=== PATIENT | female | born 1995 | race American Indian/Alaskan Native ===

== ENCOUNTER 2018-11-15 00:22 | Emergency (ER) | payer OTHER ==
[2018-11-15 00:37] VITALS: BP 122/84
--- NOTE | 2018-11-15 02:49 | Emergency Department Report ---
ED ENT HPI - General Chief complaint: Dental/Oral Stated complaint: TOOTHACHE/MOUTH PAIN Time Seen by Provider: 11/15/18 02:45 Source: patient Mode of arrival: Ambulatory Limitations: No Limitations - History of Present Illness Initial comments: 22-year-old female comes to the emergency room complaining of toothache 5 days. Patient reports that she is seen by Dr. Matthias Ramos dent[facility] on [facility]. Patient reports that her dentis increased her antibiotics that started today. Patient reports that she is currently taking oxycodone ibuprofen and amoxicillin 875. Patient states that the pain has not . MD complaint: tooth pain Location: tooth # (14) Severity: severe Quality: stabbing, aching Improves with: none Worsens with: none Associated Symptoms: toothache - Related Data Allergies Allergy/AdvReac Type Severity Reaction Status Date / Time No Known Allergies Allergy Unverified 11/15/18 00:37 ED Dental HPI - General Chief complaint: Dental/Oral Stated complaint: TOOTHACHE/MOUTH PAIN Time Seen by Provider: 11/15/18 02:45 Source: patient Mode of arrival: Ambulatory Limitations: No Limitations - Related Data Allergies Allergy/AdvReac Type Severity Reaction Status Date / Time No Known Allergies Allergy Unverified 11/15/18 00:37 ED Review of Systems ROS: Stated complaint: TOOTHACHE/MOUTH PAIN Other details as noted in HPI Constitutional: denies: chills, fever Eyes: denies: eye pain, eye discharge, vision change ENT: dental pain. denies: ear pain, throat pain Respiratory: denies: cough, shortness of breath, wheezing Cardiovascular: denies: chest pain, palpitations Endocrine: no symptoms reported Gastrointestinal: denies: abdominal pain, nausea, diarrhea Genitourinary: denies: urgency, dysuria, discharge Musculoskeletal: denies: back pain, joint swelling, arthralgia Skin: denies: rash, lesions Neurological: denies: headache, weakness, paresthesias Psychiatric: denies: anxiety, depression Hematological/Lymphatic: denies: easy bleeding, easy bruising ED Past Medical Hx - Past Medical History Previous Medical History?: Yes Hx GERD: Yes Additional medical history: hyperlipidemia - Surgical History Past Surgical History?: No - Social History Smoking Status: Never Smoker Substance Use Type: None ED Physical Exam - General Limitations: No Limitations General appearance: alert, in no apparent distress - Head Head exam: Present: atraumatic, normocephalic - Eye Eye exam: Present: normal appearance, EOMI - ENT ENT exam: Present: mucous membranes moist - Expanded ENT Exam Expanded Teeth exam: Present: dental tenderness # (14). Absent: gingival enlargement ED Course Vital Signs 11/15/18 00:30 Pulse Rate 70 Respiratory 18 Rate Blood Pressure 122/84 O2 Sat by Pulse 100 Oximetry ED Medical Decision Making - Medical Decision Making Patient has been evaluated by this provider in [facility]. I discussed the patient that she is on appropriate medication for pain m anagement and tooth infection. I discussed the patient should continue with her pain medication and follow-up with her dentist in the morning. Patient verbalized understanding. Critical care attestation.: If time is entered above; I have spent that time in minutes in the direct care of this critically ill patient, excluding procedure time. ED Disposition Clinical Impression: Pain, dental Disposition: DC-01 TO HOME OR SELFCARE Is pt being admited?: No Does the pt Need Aspirin: No Condition: Stable Instructions: Toothache (ED) Additional Instructions: Continue taking your medication that was prescribed U by Dr. Matthias Ramos your dentist. Follow up with him in the morning to discuss other ways of getting her pain under control.
== END 2018-11-15 02:45 | disposition home or self-care (01) ==
LOC: ED 00:22
DX: K08.89 Other specified disorders of teeth and supporting structures (principal); K21.9 Gastro-esophageal reflux disease without esophagitis; E78.5 Hyperlipidemia, unspecified
CPT/HCPCS: 99281

== ENCOUNTER 2019-06-07 05:02 | Emergency (ER) | payer SELFPAY ==
[2019-06-07] MEDS ORDERED: SODIUM CHLORIDE 0.9% 1000 ML 1,000 ML IV ONE (05:21)
[2019-06-07] MEDS ORDERED: FAMOTIDINE 20 MG/2 ML INJ IV ONE (05:22)
[2019-06-07] MEDS ORDERED: ONDANSETRON 4 MG/2 ML INJ IV ONE (05:22)
--- NOTE | 2019-06-07 05:40 | Emergency Department Report ---
Vomiting/Diarrhea - [facility] Chief Complaint: Nausea/Vomiting/Diarrhea Stated Complaint: EMESIS Time Seen by Provider: 06/07/19 05:21 Duration: Today Severity: moderate Nausea/Vomiting Severity: Moderate Diarrhea Severity: None Pain Location: Epigastric Other History: 23-year-old female presents to the emergency room from burning in her stomach, abdominal pain and vomiting since 2 AM. Patient reports that she has a history of a gastric ulcer. Patient reports that she was told by her doctor that she was okay. Patient has not taken any medication. ED Review of Systems ROS: Stated complaint: EMESIS Other details as noted in HPI ED Past Medical Hx - Past Medical History Previous Medical History?: Yes Hx GERD: Yes Additional medical history: hyperlipidemia - Surgical History Past Surgical History?: No - Social History Smoking Status: Never Smoker Substance Use Type: None - Medications Home Medications: Home Medications Medication Instructions Recorded Confirmed Last Taken Type Metoclopramide [Reglan] 10 mg PO TID #30 tab 06/07/19 Unknown Rx Omeprazole 40 mg PO DAILY #20 capsule. 06/07/19 Unknown Rx Vomiting Diarrhea Exam - Exam General: Vital signs noted. No distress. Alert and acting appropriately. HEENT: Yes Moist Mucous Membranes, No Pharyngeal Erythema, No Pharyngeal Exu dates, No Rhinorrhea, No Conjuctival Injection, No Frontal Tenderness, No Maxillary Tenderness Lungs: Yes Clear Lung Sounds, Yes Good Air Exchange, No Wheezes, No Stridor, No Cough, No Nasal Flaring, No Retractions, No Use of Accessory Muscles Heart exam: Regular: Yes, Murmur: No, Tachycardia: No Abdomen: Tenderness: Yes (epigastric) Skin exam: Rash: No, Edema: No, Normal turgor: Yes Neurologic: Alert and oriented, no deficits. Musculoskeletal: Unremarkable. ED Course Vital Signs 06/07/19 05:06 Temperature 97.4 F L Pulse Rate 90 Respiratory 18 Rate Blood Pressure 145/95 O2 Sat by Pulse 100 Oximetry ED Medical Decision Making - Lab Data Result diagrams: 06/07/19 05:29 06/07/19 05:29 - Medical Decision Making 23-year-old female presents to the emergency room from burning in her stomach, abdominal pain and vomiting since 2 AM. Patient reports that she has a history of a gastric ulcer. Patient reports that she was told by her doctor that she was okay. Patient has not taken any medication. IV, normal saline, IV Pepcid. Critical care attestation.: If time is entered above; I have spent that time in minutes in the direct care of this critically ill patient, excluding procedure time. ED Disposition Clinical Impression: Nausea & vomiting Disposition: DC-01 TO HOME OR SELFCARE Is pt being admited?: No Does the pt Need Aspirin: No Condition: Stable Instructions: Acute Nausea and Vomiting (ED) Prescriptions: Omeprazole 40 mg PO DAILY #20 capsule. Metoclopramide [Reglan] 10 mg PO TID #30 tab Referrals: [facility] [Provider Group] - 3-5 Days [facility],MD [Primary Care Provider] - 3-5 Days Forms: Work/School Release Form(ED)
[2019-06-07 05:56] LABS: Basophils % (Auto) 0.5 % (0.0-1.8); Eosinophils # (Auto) 0.1 K/mm3 (0.0-0.4); Eosinophils % (Auto) 1.9 % (0.0-4.3); Hematocrit 35.8 % (30.3-42.9); Hemoglobin 11.6 gm/dl (10.1-14.3); Lymphocytes # (Auto) 1.2 K/mm3 (1.2-5.4); Lymphocytes % (Auto) 27.3 % (13.4-35.0); Mean Corpuscular HGB Conc 32 % (30-34); Mean Corpuscular Volume 82 fl (79-97); Monocytes # (Auto) 0.3 K/mm3 (0.0-0.8); Monocytes % (Auto) 6.5 % (0.0-7.3); Platelet Count 225 K/mm3 (140-440); Red Blood Count 4.37 M/mm3 (3.65-5.03); Red Cell Distribution Width 13.5 % (13.2-15.2)
[2019-06-07 06:13] LABS: Alanine Aminotransferase 25 units/L (7-56); Albumin 4.5 g/dL (3.9-5); BUN/Creatinine Ratio 14; Blood Urea Nitrogen 10 mg/dL (7-17); Calcium 8.9 mg/dL (8.4-10.2); Hemolysis Index 15
[2019-06-07] MEDS ORDERED: SUCRALFATE 1 GM/10 ML ORAL LIQD PO ONE (06:40)
[2019-06-07] MEDS ORDERED: METOCLOPRAMIDE 10 MG/2 ML INJ IV ONE (07:14)
[2019-06-07] MEDS ORDERED: diphenhydrAMINE 50 MG/ML VIAL IV ONE (07:14)
[2019-06-07 08:08] VITALS: BP 115/82
[2019-06-07 08:12] LABS: Amorphous Crystals,Urine Few; Bacteria,Urine 1+ /HPF (Negative); Bilirubin,Urine NEG (Negative); Blood,Urine LG (Negative); Color,Urine Yellow (Yellow); Mucus,Urine FEW /HPF; Protein,Urine <15 mg/dL mg/dL (Negative); Urobilinogen,Urine < 2.0 mg/dL (<2.0)
== END 2019-06-07 11:26 | disposition home or self-care (01) ==
LOC: ED 05:02
DX: R11.2 Nausea with vomiting, unspecified (principal); K21.9 Gastro-esophageal reflux disease without esophagitis; E78.5 Hyperlipidemia, unspecified; Z79.899 Other long term (current) drug therapy
CPT/HCPCS: 36415; 80053; 81001; 83690; 84703; 85025; 96361; 96374; 96375; 99283; J1200; J2405; J2765; J7030

== ENCOUNTER 2020-09-21 22:27 | Emergency (ER) | payer BC ==
[2020-09-21] MEDS ORDERED: METOCLOPRAMIDE 10 MG/2 ML INJ IV ONE (22:47)
[2020-09-21] MEDS ORDERED: PANTOPRAZOLE 40 MG INJ IV ONE (22:47)
[2020-09-21] MEDS ORDERED: FAMOTIDINE 20 MG/2 ML INJ IV ONE (22:47)
[2020-09-21] MEDS ORDERED: SODIUM CHLORIDE 0.9% 1000 ML 1,000 ML IV ONE (22:47)
--- NOTE | 2020-09-21 22:48 | Emergency Department Report ---
ED General Adult HPI - General Chief complaint: Chest Pain Stated complaint: CHEST PAIN Time Seen by Provider: 09/21/20 22:40 Source: patient Mode of arrival: Ambulatory Limitations: No Limitations - History of Present Illness Initial comments: 24 yo -[place] female patient presents with complaints of upper abdominal pain radiating into her chest with nausea and vomiting x today. Patient states she has history of similar episodes in the past that were caused by her GERD. Patient states [employer] is currently not working for her. She states she gets flares like this when she eats meat and that she ate meat earlier today. She denies any hematemesis/coffee-ground emesis, melena/hematochezia, fever/chills/sweats, shortness of breath, cough, or hemoptysis. She rates her current pain as a 9/10 in severity. She states she has followed with a GI specialist in the past and was diagnosed with PUD-now healed perforation. She denies alcohol use or marijuana use - Related Data Previous Rx's Medication Instructions Recorded Last Taken Type Metoclopramide [Reglan] 10 mg PO TID #30 tab 06/07/19 Unknown Rx Omeprazole 40 mg PO DAILY #20 capsule.dr 06/07/19 Unknown Rx Pantoprazole [Protonix] 40 mg PO QDAY 30 Days #30 tablet 09/22/20 Unknown Rx Potassium Chloride 10 meq PO QDAY 5 Days #5 tablet.er 09/22/20 Unknown Rx Sucralfate [Carafate] 1 gm PO Q6HR 10 Days #40 tablet 09/22/20 Unknown Rx Allergies Allergy/AdvReac Type Severity Reaction Status Date / Time No Known Allergies Allergy Unverified 11/15/18 00:37 ED Review of Systems ROS: Stated complaint: CHEST PAIN Other details as noted in HPI Constitutional: weakness. denies: chills, diaphoresis, fever, malaise Respiratory: denies: cough, shortness of breath Cardiovascular: chest pain Gastrointestinal: abdominal pain, nausea, vomiting. denies: diarrhea, constipation, hematemesis, melena, hematochezia Genitourinary: denies: urgency, dysuria, frequency, hematuria Musculoskeletal: denies: back pain Skin: denies: change in color ED Past Medical Hx - Past Medical History Previous Medical History?: Yes Hx GERD: Yes Additional medical history: hyperlipidemia - Surgical History Past Surgical History?: No - Social History Smoking Status: Never Smoker Substance Use Type: None - Medications Home Medications: Home Medications Medication Instructions Recorded Confirmed Last Taken Type Metoclopramide [Reglan] 10 mg PO TID #30 tab 06/07/19 Unknown Rx Omeprazole 40 mg PO DAILY #20 capsule.dr 06/07/19 Unknown Rx Pantoprazole [Protonix] 40 mg PO QDAY 30 Days #30 tablet 09/22/20 Unknown Rx Potassium Chloride 10 meq PO QDAY 5 Days #5 tablet.er 09/22/20 Unknown Rx Sucralfate [Carafate] 1 gm PO Q6HR 10 Days #40 tablet 09/22/20 Unknown Rx ED Physical Exam - General Limitations: No Limitations General appearance: alert, other (Patient actively vomiting) - Head Head exam: Present: atraumatic, normocephalic - ENT ENT exam: Present: normal orophraynx, mucous membranes moist - Neck Neck exam: Present: normal inspection - Respiratory Respiratory exam: Present: normal lung sounds bilaterally. Absent: respiratory distress, chest wall tenderness - Cardiovascular Cardiovascular Exam: Present: regular rate, normal rhythm. Absent: systolic murmur, diastolic murmur, rubs, gallop - GI/Abdominal GI/Abdominal exam: Present: soft, tenderness (Epigastric). Absent: distended, guarding, rebound - Back Exam Back exam: Present: full ROM - Neurological Exam Neurological exam: Present: alert, oriented X3, normal gait - Psychiatric Psychiatric exam: Present: normal affect, normal mood - Skin Skin exam: Present: warm, dry, intact, normal color. Absent: rash, cyanosis, diaphoretic, erythema, petechiae, pallor ED Course Vital Signs 09/21/20 09/22/20 22:37 01:57 Temperature 97.7 F 98.3 F Pulse Rate 91 H Respiratory 18 18 Rate Blood Pressure 137/97 135/75 O2 Sat by Pulse 100 Oximetry ED Medical Decision Making - Lab Data Result diagrams: 09/21/20 22:47 09/21/20 22:47 Lab Results 09/21/20 09/21/20 Range/Units 22:47 22:47 WBC 7.9 (4.5-11.0) K/mm3 RBC 4.27 (3.65-5.03) M/mm3 Hgb 11.4 (10.1-14.3) gm/dl Hct 34.5 (30.3-42.9) % MCV 81 (79-97) fl MCH 27 L (28-32) pg MCHC 33 (30-34) % RDW 13.3 (13.2-15.2) % Plt Count 250 (140-440) K/mm3 Lymph % (Auto) 22.7 (13.4-35.0) % [place] % (Auto) 5.3 (0.0-7.3) % Eos % (Auto) 0.7 (0.0-4.3) % Baso % (Auto) 0.5 (0.0-1.8) % Lymph # (Auto) 1.8 (1.2-5.4) K/mm3 [place] # (Auto) 0.4 (0.0-0.8) K/mm3 Eos # (Auto) 0.1 (0.0-0.4) K/mm3 Baso # (Auto) 0.0 (0.0-0.1) K/mm3 Seg Neutrophils % 70.8 H (40.0-70.0) % Seg Neutrophils # 5.6 (1.8-7.7) K/mm3 Sodium 139 (137-145) mmol/L Potassium 3.2 L (3.6-5.0) mmol/L Chloride 99.6 (98-107) mmol/L Carbon Dioxide 31 H (22-30) mmol/L Anion Gap 12 mmol/L BUN 8 (7-17) mg/dL Creatinine 0.7 (0.6-1.2) mg/dL Estimated GFR > 60 ml/min BUN/Creatinine Ratio 11 % Glucose 135 H (65-100) mg/dL Calcium 8.9 (8.4-10.2) mg/dL Total Bilirubin 0.80 (0.1-1.2) mg/dL AST 59 H (5-40) units/L ALT 29 (7-56) units/L Alkaline Phosphatase 73 (35-129) units/L Troponin T < 0.010 (0.00-0.029) ng/mL Total Protein 7.6 (6.3-8.2) g/dL Albumin 4.5 (3.9-5) g/dL Albumin/Globulin Ratio 1.5 % - Medical Decision Making 24 yo -[place] female patient presents with complaints of upper abdominal pain radiating into her chest with nausea and vomiting x today. Patient states she has history of similar episodes in the past that were caused by her GERD. Patient states Pepcid is currently not working for her. She states she gets flares like this when she eats meat and that she ate meat earlier today. She denies any hematemesis/coffee-ground emesis, melena/hematochezia, fever/chills/sweats, shortness of breath, cough, or hemoptysis. She rates her current pain as a 9/10 in severity. She states she has followed with a GI specialist in the past and was diagnosed with PUD-now healed perforation. Patient refused EKG, chest x-ray, and abdominal imaging. CBC is normal. Mild hypokalemia noted on CMP. Anion gap is 12. Patient given Pepcid, Protonix, and Reglan along with 1 L normal saline. She states her symptoms have completely resolved. Upon recheck, no further abdominal tenderness to palpation is noted on exam. No further vomiting observed. She denies any further chest pain and continues to deny shortness of breath. Initial and repeat vitals are normal. She is well-appearing and stable for discharge home. Prescription for Protonix given. Patient to follow-up with GI for further evaluation and treatment. Stri ct return precautions were discussed in great detail with patient who verbalized understanding. Critical care attestation.: If time is entered above; I have spent that time in minutes in the direct care of this critically ill patient, excluding procedure time. ED Disposition Clinical Impression: GERD (gastroesophageal reflux disease), Gastritis, Hypokalemia Disposition: TO HOME OR SELFCARE Is pt being admited?: No Condition: Stable Instructions: Hypokalemia, Food Choices for Gastroesophageal Reflux Disease, Adult, Gastroesophageal Reflux Disease, Adult Prescriptions: Sucralfate [Carafate] 1 gm PO Q6HR 10 Days #40 tablet Potassium Chloride 10 meq PO QDAY 5 Days #5 tablet.er Pantoprazole [Protonix] 40 mg PO QDAY 30 Days #30 tablet Referrals: [facility] [Provider Group] - 2-3 Days Forms: Work/School Release Form(ED)
[2020-09-21] MEDS: diphenhydrAMINE 50 MG/ML VIAL IV ONE ×2 (23:06→23:21)
[2020-09-21] MEDS: MORPHINE 4 MG/1 ML INJ IV ONE ×2 (23:07→23:21)
--- NOTE | 2020-09-21 23:52 | XRay Report ---
CHEST 2 VIEWS INDICATION: chest pain. COMPARISON: None. FINDINGS: Support devices: None. Heart: Within normal limits. Lungs/Pleura: No acute air space or interstitial disease. No significant pleural effusion. IMPRESSION: No acute findings. Signer Name: Ahsan Dwyer MD Signed: 09/21/2020 11:48 PM Workstation Name: [id number]
[2020-09-21 23:53] LABS: Basophils % (Auto) 0.5 % (0.0-1.8); Eosinophils # (Auto) 0.1 K/mm3 (0.0-0.4); Eosinophils % (Auto) 0.7 % (0.0-4.3); Hematocrit 34.5 % (30.3-42.9); Hemoglobin 11.4 gm/dl (10.1-14.3); Lymphocytes # (Auto) 1.8 K/mm3 (1.2-5.4); Lymphocytes % (Auto) 22.7 % (13.4-35.0); Mean Corpuscular HGB Conc 33 % (30-34); Mean Corpuscular Volume 81 fl (79-97); Monocytes # (Auto) 0.4 K/mm3 (0.0-0.8); Monocytes % (Auto) 5.3 % (0.0-7.3); Platelet Count 250 K/mm3 (140-440); Red Blood Count 4.27 M/mm3 (3.65-5.03); Red Cell Distribution Width 13.3 % (13.2-15.2)
[2020-09-22 00:14] LABS: Alanine Aminotransferase 29 units/L (7-56); Albumin 4.5 g/dL (3.9-5); Blood Urea Nitrogen 8 mg/dL (7-17); Calcium 8.9 mg/dL (8.4-10.2); Hemolysis Index 2
[2020-09-22 00:15] LABS: BUN/Creatinine Ratio 11
[2020-09-22] MEDS ORDERED: POTASSIUM CHLORIDE ER 20 MEQ TAB PO ONE (01:34)
[2020-09-22] MEDS ORDERED: ONDANSETRON 4 MG ODT TAB PO ONE (01:56)
[2020-09-22 02:12] VITALS: BP 135/75
== END 2020-09-22 02:08 | disposition home or self-care (01) ==
LOC: ED 22:27
DX: K21.9 Gastro-esophageal reflux disease without esophagitis (principal); K29.70 Gastritis, unspecified, without bleeding; E87.6 Hypokalemia; Z79.899 Other long term (current) drug therapy
CPT/HCPCS: 36415; 71046; 80053; 84484; 85025; 96361; 96374; 96375; 99284; C9113; J2765; J7030; J1200; J2270

== ENCOUNTER 2020-10-29 02:04 | Emergency (ER) | payer BC | END 2020-10-29 03:08 | disposition left against medical advice (07) | LOC: ED 02:04 | DX: R07.9 Chest pain, unspecified (principal); Z53.21 Procedure and treatment not carried out due to patient leaving prior to being seen by health care provider ==

== ENCOUNTER 2020-11-07 12:42 | Emergency (ER) | payer BC ==
--- NOTE | 2020-11-07 15:05 | Event Note ---
ED Screening Note Date of service: 11/07/20 Time: 15:02 ED Screening Note: 24 year old female presents to ED with complaints of bloody diarrhea since this morning. She reports 3 episodes of the diarrhea. She states she had severe flare up of her reflux lastnight with 1episode of vomiting and epigastric pain but this has since resolved. Emesis mainly food. She reports hx of Anemia but she has never had blood transfusion. She recently had her GB removed a couple weeks ago She is not on any blood thinners This initial assessment/diagnostic orders/clinical plan/treatment(s) is/are subject to change based on patients health status, clinical progression and re- assessment by fellow clinical providers in the ED. Further treatment and workup at subsequent clinical providers discretion. Patient/guardian urged not to elope from the ED as their condition may be serious if not clinically assessed and managed. Initial orders include: labs
[2020-11-07 15:23] LABS: Basophils % (Auto) 0.4 % (0.0-1.8); Eosinophils # (Auto) 0.2 K/mm3 (0.0-0.4); Eosinophils % (Auto) 3.8 % (0.0-4.3); Hematocrit 27.6 % (30.3-42.9); Hemoglobin 9.1 gm/dl (10.1-14.3); Lymphocytes # (Auto) 1.4 K/mm3 (1.2-5.4); Lymphocytes % (Auto) 25.6 % (13.4-35.0); Mean Corpuscular HGB Conc 33 % (30-34); Mean Corpuscular Volume 81 fl (79-97); Monocytes # (Auto) 0.4 K/mm3 (0.0-0.8); Monocytes % (Auto) 7.4 % (0.0-7.3); Platelet Count 278 K/mm3 (140-440); Red Blood Count 3.41 M/mm3 (3.65-5.03); Red Cell Distribution Width 13.5 % (13.2-15.2)
[2020-11-07 15:33] LABS: INR 1.11 (0.87-1.13)
[2020-11-07 15:34] LABS: Partial Thromboplastin Time 30.3 Sec. (24.2-36.6)
[2020-11-07 15:48] LABS: Alanine Aminotransferase 189 units/L (7-56); Blood Urea Nitrogen 9 mg/dL (7-17); Calcium 8.7 mg/dL (8.4-10.2); Hemolysis Index 5
[2020-11-07 15:52] LABS: BUN/Creatinine Ratio 15; Bilirubin,Direct < 0.2 mg/dL (0-0.2)
[2020-11-07 18:13] VITALS: BP 141/83
== END 2020-11-07 15:00 | disposition left against medical advice (07) ==
LOC: ED 12:42
DX: R19.7 Diarrhea, unspecified (principal); Z53.21 Procedure and treatment not carried out due to patient leaving prior to being seen by health care provider
CPT/HCPCS: 36415; 80048; 80076; 83690; 83735; 85025; 85610; 85730; 86850; 86900; 86901